=== PATIENT | male | born 1960 | race Caucasian/White ===

== ENCOUNTER 2017-07-13 18:54 | Emergency (ER) | payer MEDICARE ==
[~2017-07-13] VITALS: Ht 170.2 cm; Wt 88.5 kg
[2017-07-13] MEDS ORDERED: CEFTRIAXONE SOD 1 GM VIAL IM ONE (19:30)
[2017-07-13] MEDS ORDERED: ALBUTEROL/IPRATROPIUM 3 ML NEB NEB ONE (19:30)
[2017-07-13] MEDS ORDERED: ATORVASTATIN CA20 MG PO (19:49)
[2017-07-13] MEDS ORDERED: INCRUSE PO (19:49)
[2017-07-13] MEDS ORDERED: [UNRECOGNIZED DRUG - OTHER] INH (19:49)
[2017-07-13] MEDS ORDERED: DALIRESP500 MCG PO (19:49)
[2017-07-13] MEDS ORDERED: GLIPIZIDE ER5 MG PO (19:49)
[2017-07-13] MEDS ORDERED: ADVIL200 M1 (19:49)
[2017-07-13] MEDS ORDERED: CLOPIDOGREL75 MG PO (19:49)
[2017-07-13] MEDS ORDERED: ADVAIR HFA 115-12 GM (19:49)
[2017-07-13] MEDS ORDERED: METFORMIN HCL500 MG PO (19:49)
[2017-07-13] MEDS ORDERED: ALBUTEROL0.63 MG/3 (19:49)
[2017-07-13] MEDS ORDERED: LISINOPRIL10 MG PO (19:49)
[2017-07-13] MEDS ORDERED: [UNRECOGNIZED DRUG - OTHER] PO (19:49)
[2017-07-13 20:32] VITALS: BP 145/68
== END 2017-07-13 20:30 | disposition home or self-care (01) ==
LOC: FSED 18:54
DX: R05 Cough (principal); J20.9 Acute bronchitis, unspecified; J00 Acute nasopharyngitis [common cold]; J01.00 Acute maxillary sinusitis, unspecified
CPT/HCPCS: 99283; J0696